=== PATIENT | female | born 1965 | race Caucasian/White ===

== ENCOUNTER 2020-07-08 07:38 | Inpatient (IN) | payer OTHER ==
[~2020-07-08] VITALS: Ht 170.2 cm; Wt 140.6 kg
--- NOTE | ~2020-07-08 | O ---
[facility] [place] [address] OPERATIVE REPORT Name: TAMIA MCKENNA Room #: 150-5 ADM IN M.R.#: [id number] Admission: 07/08/20 Attend Phys: Krzysztof Wheeler MD Discharge: Date of : 69 Report #: [id number] THIS REPORT FOR: cc: Zay Hanna,Krzysztof Gorman MD ~ CC: Zay Figueroa DATE OF SERVICE: 07/08/2020 PREOPERATIVE DIAGNOSES: 1. Morbid obesity. 2. Gastroesophageal reflux disease. 3. Chronic low back pain. POSTOPERATIVE DIAGNOSES: 1. Morbid obesity. 2. Gastroesophageal reflux disease. 3. Chronic back pain. 4. Hiatal hernia. OPERATIVE PROCEDURE DONE: 1. Laparoscopic vertical sleeve gastrectomy. 2. Laparoscopic repair of hiatal hernia. OPERATING SURGEON: Krzysztof Wheeler M.D. INDICATIONS FOR THE PROCEDURE: The patient is a 54-year-old female who presented with features of morbid obesity. She was noted to have a weight of 145 kg with a BMI of 50 with the above listed comorbidities. The patient was advised laparoscopic vertical sleeve gastrectomy and possible hiatal hernia repair. The patient showed understanding and agreed to proceed. DESCRIPTION OF PROCEDURE: After explaining to the patient in detail, an informed consent was obtained, the patient was identified in the preoperative holding area. The patient was transferred to the operating room and was placed in supine position. Subsequent sterile compressive devices were placed for DVT prophylaxis. Preoperative antibiotics were given. After induction of anesthesia, the abdomen was prepped and draped in a sterile fashion. Through a right upper quadrant 1 cm incision and using Optiview technique, peritoneal cavity was entered and pneumoperitoneum was created, so thereafter under direct vision, another 12 mm trocar was placed in the right mid abdomen, another 5 mm trocar was placed in the left mid abdomen, another 5 mm trocar was placed in the left upper quadrant region and through a 1 cm incision in the epigastrium, a [address] [address] OPERATIVE REPORT Name: TAMIA MCKENNAN Room #: [facility]5 ADM IN .R.#: [id number] Admission: 07/08/20 Attend Phys: Krzysztof Wheeler MD Discharge: Date of : 69 Report #: [id number] Amador retractor was introduced and the left lobe of the liver was retracted. On initial inspection, the patient was noted to have a hiatal hernia that is about 4 cm in size. I started to take down the gastroepiploic vessel using EnSeal, continued this superiorly. The short gastric vessels were taken down. The gastrophrenic ligament was divided and the angle of His was mobilized distally. The gastroepiploic vessels were taken down up to about 4 cm proximal to the pylorus. Using pars flaccida technique, the right rhonda was identified. The phrenoesophageal membrane was divided anteriorly. I continued to dissect the hiatal hernia circumferentially and from the left rhonda, I did a posterior dissection, both from the right and the left side to mobilize the distal esophagus to have adequate length. Once this was completed, I then passed a 36-Urdu orogastric ViSiGi tube into the stomach and this was placed along the lesser curve of the stomach. A posterior cruroplasty was performed with a xzssdo-qc-nuuoe Ethibond suture. I then placed a single suture between the esophagus and the right crura to prevent any recurrence of the hernia. I then divided the stomach in a vertical fashion with multiple Endo-RIVERA [place] stapler, 2 black loads, 3 green loads, and 1 gold load was used to divide the stomach in a vertical fashion to create a loose sleeve around the 36-Urdu bougie. Steri-Strips were used on the melba. An air leak test was performed by instilling air into the stomach and by irrigation of fluid along the staple line. There was no leak that was noted. Absolute hemostasis was ensured. Thorough saline irrigation was given. The abdomen was then deflated. Prior to this, approximately about 10 mL of lidocaine and Marcaine mix was instilled under the left hemidiaphragm. The sleeve gastrectomy specimen was removed. The Amador retractor was removed. The 12 mm port site incision was closed with 0 Vicryl for the fascia. Skin was closed with 4-0 Monocryl for all the incisions. Dermabond was applied. The patient was stable at the end of the procedure. The patient was awoken from anesthesia and was transferred to the recovery room in stable condition. ESTIMATED BLOOD LOSS: Approximately 25 mL. CONDITION OF THE PATIENT: Stable. FLUIDS GIVEN: Per Anesthesia notes. SPECIMEN SENT: None. COMPLICATIONS: None. [address] [address] OPERATIVE REPORT Name: RODRÍGUEZTONITAMIA ZULLY Room #: 150-5 [facility] IN M.R.#: [id number] Admission: 07/08/20 Attend Phys: Krzysztof Wheeler MD Discharge: Date of : 69 Report #: [id number] ANESTHESIA: General anesthesia. By: 1221 1251 Krzysztof Wheeler MD /nt
[~2020-07-08 07:38] MED LIST: AMITIZA8 MCG PO; CLARITIN10 MG PO; ETODOLAC200 MG PO; FLEXERIL PO; MEDROLDOSEPACK PO; OXYCODONE HCL 55 MG PO; STOOL SOFTENER50 MG PO; SYNTHROID112 MCG; TIROSINT112 MCG PO; VICODIN 5-5001 EACH PO; VITAMIN D375 MCG PO; VITAMIN D400 UNI1 PO
[2020-07-08 08:54] LABS: HEMATOCRIT 46.8 % (37.0-47.0); HEMOGLOBIN 15.6 gm/dL (12.0-15.0); MCH 29.2 pg (26.0-34.0); MCHC 33.3 g/dL (28.0-37.0); MCV 87.5 fL (80.0-100.0); RBC 5.35 mil/uL (4.20-5.00); RDW 16.4 % (10.5-14.5); WBC 8.2 thou/uL (4.0-11.0)
[2020-07-08 09:02] LABS: CALCIUM 9.4 mg/dL (8.5-10.1); CREATININE 0.9 mg/dL (0.6-1.0); POTASSIUM 4.1 mmol/L (3.5-5.1)
[2020-07-08 09:09] LABS: ALBUMIN 3.7 g/dL (3.4-5.0); TOTAL BILIRUBIN 0.5 mg/dL (0.2-1.0)
[2020-07-08 09:40] VITALS: BP 125/77
[2020-07-08 14:25] VITALS: BP 135/79
--- NOTE | 2020-07-08 15:50 | EKG ---
[facility] [place] [address] ELECTROCARDIOGRAM REPORT Name: TAMIA MCKENNA Room #: 443-[facility] IN M.R.#: [id number] Admission: 07/08/20 Attend Phys: rKzysztof Wheeler MD Discharge: 07/08/20 Date of : 69 Report #: [id number] THIS REPORT FOR: cc: Zay Hanna Russell J. DO Couchonnal, Luis F. MD ~ THIS REPORT FOR: //name// [facility] Test Date: 2020-07-08 Test Time: 08:58:53 Pat Name: TAMIA MCKENNA Department: Room: 443 Gender: F Ict Managers: JORGE LUIS : 1965 Requested By: Krzysztof Wheeler Order Number: [id number] MD: Kentrell Arciniega Measurements Intervals [place] Rate: 80 P: -7 TN: 116 QRS: 9 QRSD: 93 T: 21 QT: 381 QTc: 440 Interpretive Statements Sinus rhythm Borderline short TN interval Abnormal R-wave progression, early transition No previous ECG available for comparison Electronically Signed On 07-08-2020 15:50:21 CDT by Kentrell Arciniega [email or web address] <ELECTRONICALLY SIGNED> By: Kentrell Arciniega MD 07/08/20 1550 [id number] Kentrell Arcineiga MD /EPI
--- NOTE | 2020-07-08 18:44 | NUR ---
PATIENT ADMITTED FROM OR WITH LAP SLEEVE GASTRECTOMY, PATIENT HAS 5 LAP SITES WITH DERMABOND, C/D/I. PATIENT C/O PAIN WITH ABDOMEN AREA, 6/10, MORPHINE 4MG IV GIVEN PER LEFT HAND IV. PATIENT IS STRICT NPO. PATIENT DENIES NAUSEA. KNEE HIGH CRUZ FREEDMAN, SCD'S IN PLACE. ADMISSION COMPLETED, REPORT GIVEN TO NICHO/ALDEN. VSS.
--- NOTE | 2020-07-08 18:46 | NUR ---
PT ARRIVED ON UNIT AT 1425 ACCOMPANIED BY . [place] 97.5 20 80 135/79 O2 SAT = 98 % RA. HEIGHT =5' 7" WEIGHT = 297 LBS HAS 5 LAP SITES TO ABD WITH DURMABOND. PT IS PLEASANT AND COOPERATIVE WITH CARE.
--- NOTE | 2020-07-08 19:25 | NUR ---
1900 ASSUMED CARE OF PT AFTER BEDSIDE REPORT. 191 BASELINE ASSESSMENT COMPLETED, SURGERY SITES ALL WITH DERMABOND, APPROXIMATED AND DRY, HYPOACTIVE BOWEL SOUNDS X 4 QUADS, ENCOURAGED TO COUGH AND DEEP BREATH, SCDS AND CRUZ HOSE IN PLACE, PT AMBULATED IN ROOM WITHOUT DIFFICULTY, STAND BY ASSIST. PAIN MEDS HAVE IMPROVED PAIN, FALL PRECAUTIONS IN PLACE, WILL CONTINUE TO MONITOR
[2020-07-08 20:01] VITALS: BP 117/74
[2020-07-09 00:42] VITALS: BP 127/84
[2020-07-09 00:44] VITALS: BP 127/84; BP 140/83
[2020-07-09 02:06] LABS: GLYCOHEMOGLOBIN (HGB A1C) 5.6 % (4.8-5.6)
[2020-07-09 03:38] VITALS: BP 127/84
[2020-07-09 08:00] VITALS: BP 125/71
[2020-07-09] MEDS ORDERED: HYDROCODONE-ACE15 ML PO (14:05)
[2020-07-09] MEDS ORDERED: ZOFRAN4 MG PO (14:06)
--- NOTE | 2020-07-09 15:50 | NUR ---
ASSESSMENT: CM REVIEWED CHART AND SPOKE WITH PT. PT HAD LAP SLEEVE GASTRECTOMY. PT REPORTS LIVING W /DAUGHTER/AND GRANDDAUGHTER. PT REPORTS BEING FULLY INDEPENDENT W ADLS AND AMBULATION. PT DENIES ANY NEED FOR DME. PT STATES NO HX OF HH OR SNF. PT DID WELL WITH PHYSICAL THERAPY WHO CLEARED HER. PT IS STARTED ON CLD AND WILL DISCHARGE WHEN TOLERATES DIET. PT REPORTS NO NEEDS FROM CM. PLANS TO DISCHARGE HOME NO NEEDS.
[2020-07-09 16:30] VITALS: BP 130/81
--- NOTE | 2020-07-09 18:45 | NUR ---
PT ASSESSED AT START OF SHIFT. PT AMBULATED SEVERAL TIMES W/O PASSING FLATUS BUT DID BELCH SEVERAL TIMES. DR. JI IN THIS AFTERNOON AND PT STARTED ON LEVEL 1 GASTRIC SLEEVE DIET. PT TOLERATED IT WELL AND PLANS ON D/C THIS EVENING.
[2020-07-09 19:22] VITALS: BP 130/81
--- NOTE | 2020-07-10 14:07 | PATH ---
[facility] [address] [place] [address] PATHOLOGY RPT PROCEDURE Name: TAMIA MCKENNA Room #: 443-P [facility] IN M.R.#: [id number] Admission: 07/08/20 Date of : 69 Discharge: 07/09/20 Report #: [id number] Path Case #: [id number] [facility] Accession Number: [id number] . 01 Material submitted: . stomach - LAP SLEEVE GASTRECTOMY . 01 Clinical history: . Morbid obesity . 02 Diagnosis: Stomach, laparoscopic sleeve gastrectomy: - No diagnostic abnormalities, history of morbid obesity. (IUV:minda; 07/09/2020) QMS 07/09/2020 1503 Local . 02 Electronically signed: . Nanette Ca MD, Pathologist NPI- [id number] . 01 Gross description: . The specimen is received in formalin, labeled "Tamia Bowling, lap sleeve gastrectomy". Received is a partial gastrectomy specimen with a stapled margin of resection measuring 25.2 x 3.5 x 2.8 cm in greatest dimensions. The serosal surface is pink-hernandez and glistening in appearance. Opening the specimen reveals pink-hernandez to pink-szymanski, granular-appearing mucosa with normal rugal folds. No distinct nodules or lesions are noted grossly. The specimen is submitted representatively in cassette A1. (CAA; 07/08/2020) QAC/QAC 07/08/2020 1836 Local . 02 Pathologist provided ICD-10: E66.01 . 02 CPT . 911394 Specimen Comment: A courtesy copy of this report has been sent to [phone], [phone] Specimen Comment: [id number] Specimen Comment: Report sent to / DR MONTES Performed at: [address] [id number] MD Zay Aleman MD Phone: [phone] Performed at: [address] [id number] [address] [address] PATHOLOGY RPT PROCEDURE Name: BALATAMIA Room #: 443-P [facility] IN M.R.#: [id number] Admission: 07/08/20 Date of : 69 Discharge: 07/09/20 Report #: [id number] Path Case #: [id number] MD Nanette Ca MD Phone: [phone]
== END 2020-07-09 20:20 | disposition home or self-care (01) | DRG 621 ==
LOC: PRE 07:38 → TBA 08:08 → 4S 08:08 → PRE 10:48 → OR 13:27 → EDSTATUS 13:34 → PRE 14:17 → 4S 14:40
PROVIDERS: ADMIT Surgery; ATTEND Surgery
PROC: 0BQT4ZZ Repair Diaphragm, Percutaneous Endoscopic Approach (ICD-10-PCS; principal; 2020-07-08)
PROC: 0DB64Z3 Excision of Stomach, Percutaneous Endoscopic Approach, Vertical (ICD-10-PCS; principal; 2020-07-08)
DX: E66.01 Morbid (severe) obesity due to excess calories (principal); K44.9 Diaphragmatic hernia without obstruction or gangrene; K21.9 Gastro-esophageal reflux disease without esophagitis; G89.29 Other chronic pain; M54.5 Low back pain; Z68.42 Body mass index [BMI] 45.0-49.9, adult; Z03.818 Encounter for observation for suspected exposure to other biological agents ruled out
CPT/HCPCS: 10102; 50010; 50101; 50222; 50249; 50386; 50555; 50558; 50739; 50740; 51489; 52265; 52266; 53307; 54022; 54118; 56462; 56525; 56526; 56531; 57092; 62110; 62900; 70005